=== PATIENT | female | born 1950 | race African-American/Black ===

== ENCOUNTER 2018-03-19 16:55 | Emergency (ER) | payer MEDICAID ==
[~2018-03-19] VITALS: Ht 172.7 cm; Wt 138.8 kg
[2018-03-20 01:00] VITALS: BP 117/86
== END 2018-03-20 01:33 | disposition home or self-care (01) ==
LOC: ER 16:59
DX: I72.4 Aneurysm of artery of lower extremity (principal); I10 Essential (primary) hypertension
CPT/HCPCS: 93971